=== PATIENT | male | born 1935 | race Caucasian/White ===

== ENCOUNTER 2022-11-06 14:16 | Emergency (ER) | payer MEDICARE, OTHER ==
[~2022-11-06] VITALS: Ht 172.7 cm; Wt 68.0 kg
[2022-11-06 14:47] LABS: BASOPHILS # (AUTO) 0.1 K/UL (0.0-0.2); BASOPHILS % (AUTO) 0.7 % (0.0-2.0); EOSINOPHILS # (AUTO) 0.7 K/uL (0.0-0.7); HEMATOCRIT 39.1 % (36.7-47.1); HEMOGLOBIN 12.9 g/dL (12.5-16.3); LYMPHOCYTES # (AUTO) 2.2 K/uL (0.8-4.8); LYMPHOCYTES % (AUTO) 20.4 % (20.5-51.5); MEAN CORPUSCULAR HEMOGLOBIN 28.9 uug (23.8-33.4); MEAN CORPUSCULAR HGB CONC 33 g/dL (32.5-36.3); MEAN CORPUSCULAR VOLUME 87.6 fL (73.0-96.2); MONOCYTES # (AUTO) 0.8 K/uL (0.1-1.30); MONOCYTES % (AUTO) 7.4 % (0.0-11.0); NEUTROPHILS # (AUTO) 7.1 K/uL (1.8-8.9); NEUTROPHILS % (AUTO) 65.5 % (38.5-71.5); PLATELET COUNT (AUTO) 303 K/uL (152-348); RED BLOOD CELL COUNT(AUTO) 4.46 MIL/uL (4.06-5.63); RED CELL DISTRIBUTION WIDTH 15.3 % (12.1-16.2); WHITE BLOOD COUNT (AUTO) 10.8 K/uL (3.6-10.2)
[2022-11-06 15:06] LABS: CARBON DIOXIDE 25 mmol/L (21-32); CHLORIDE 102 mmol/L (98-107); POTASSIUM 3.7 mmol/L (3.5-5.1); SODIUM SERUM 135 mmol/L (136-145)
[2022-11-06 15:07] LABS: BILIRUBIN,DIRECT 0.1 mg/dL (0.0-0.2); CALCIUM 8.3 mg/dL (8.5-10.1); CREATININE 1.3 mg/dL (0.6-1.3); GLUCOSE 102 mg/dL (74-106); UREA NITROGEN, BLOOD 17 mg/dL (7-18)
[2022-11-06 15:08] LABS: ALANINE AMINOTRANSFERASE 12 U/L (16-63); ALBUMIN 3.1 g/dL (3.4-5.0); ALKALINE PHOSPHATASE 87 U/L (50-136); ASPARTATE AMINOTRANSFERASE 7 U/L (15-37); TOTAL PROTEIN, SERUM 7.4 g/dL (6.4-8.2)
[2022-11-06 15:14] LABS: NT-PRO BNP 244 pg/mL (0-125)
[2022-11-06 15:25] LABS: BILIRUBIN,TOTAL 0.3 mg/dL (0.2-1.0)
[2022-11-06 15:29] LABS: DIFFERENTIAL COMMENT 1
[2022-11-06 15:34] LABS: ETHANOL < 3 MG/DL (0-10)
[2022-11-06] MEDS ORDERED: FURO-152 PO (15:59)
[2022-11-06 16:05] VITALS: BP 128/71; TEMP 97.6; O2SAT 95
== END 2022-11-06 16:22 | disposition home or self-care (01) ==
LOC: ER 14:16
DX: R53.1 Weakness (principal); R60.0 Localized edema; I10 Essential (primary) hypertension; R07.89 Other chest pain; F17.210 Nicotine dependence, cigarettes, uncomplicated; Z79.899 Other long term (current) drug therapy; Z20.822 Contact with and (suspected) exposure to COVID-19
CPT/HCPCS: 36415; 71045; 84484; 85025; 93005; A4663; G0480